=== PATIENT | male | born 2000 | race Caucasian/White ===

== ENCOUNTER 2018-09-28 17:53 | Emergency (ER) | payer OTHER ==
[2018-09-28] MEDS: PROPOFOL 200 MG INJ IV (18:19)
[2018-09-28] MEDS: morphine 4 MG/ML VIAL IV (18:35)
[2018-09-28] MEDS: ONDANSETRON 4 MG INJ IV (18:35)
[2018-09-28] MEDS: SOD CHLORIDE 0.9% 1,000 ML IV (18:36)
[2018-09-28] MEDS: KETOROLAC 30 MG INJ IV (20:13)
== END 2018-09-28 20:22 | disposition home or self-care (01) ==
LOC: E/R 17:53
DX: S43.014A Anterior dislocation of right humerus, initial encounter (principal); R40.2142 Coma scale, eyes open, spontaneous, at arrival to emergency department; R40.2252 Coma scale, best verbal response, oriented, at arrival to emergency department; R40.2362 Coma scale, best motor response, obeys commands, at arrival to emergency department; V00.131A Fall from skateboard, initial encounter; Y92.9 Unspecified place or not applicable
CPT/HCPCS: 23650; 73030-RT; 94770; 96374; 96375; 99285-25